=== PATIENT | male | born 1940 | race Hispanic/Latino ===

== ENCOUNTER 2020-12-17 12:13 | Emergency (ER) | payer OTHER ==
--- NOTE | 2020-12-17 14:07 | RAD ---
PORTABLE CHEST 1 VIEW: DATE: 11/26/2020. TIME: 1:30 PM. HISTORY: Dyspnea. COMPARISON: 06/25/2020. FINDINGS/IMPRESSION: There is a moderate-sized right pleural effusion with adjacent atelectatic change. The heart size is normal. No pneumothoraces are seen. Deformity of the right proximal humerus is again seen. There are degenerative changes in the acromioclavicular joints bilaterally. POS: ANGELITOA
[2020-12-17 14:57] LABS: #Eosinphils 0.2 thou/uL (0.0-0.7); #Lymphocytes 0.9 thou/uL (1.20-3.40); #Monocytes 0.4 thou/uL (0.11-0.59); #Neutrophils 2.8 thou/uL (1.40-6.50); %Eosinophils 5.6 % (0.0-10.0); %Lymphocytes 20.4 % (21.0-51.0); %Monocytes 8.4 % (0.0-10.0); %Neutrophils 64.5 % (42.0-75.0); Hemoglobin 8.6 g/dL (14.0-18.0); Mean Corpuscular HGB CONC 32.4 g/dL (32.0-36.0); Mean Corpuscular Hemoglobin 32.7 pg (27.0-31.0); Mean Platelet Volume 8.4 fL (7.4-10.4); Platelet Count 122 thou/uL (130-400); Red Blood Cell (RBC) Count 2.64 mill/uL (4.70-6.10); White Blood Cell (WBC) Count 4.3 thou/uL (4.8-10.8)
[2020-12-17 15:21] LABS: ALT (SGPT) 34 U/L (8-55); AST (SGOT) 48 U/L (5-34); Albumin 2.9 g/dL (3.4-4.8); Alkaline Phosphatase 606 U/L (40-110); Anion Gap 16 mmol/L (10-20); BUN (Urea Nitrogen) 79 mg/dL (8.4-25.7); Bilirubin, Total 0.6 mg/dL (0.2-1.2); CK (CPK) 154 U/L (30-200); Calc. Creatinine Clearance 0 mL/min (70-130); Calcium 8.1 mg/dL (7.8-10.44); Carbon Dioxide 21 mmol/L (23-31); Chloride 109 mmol/L (98-107); Glucose 208 mg/dL (83-110); Lipase 40 U/L (8-78); Potassium 5.9 mmol/L (3.5-5.1); Protein, Total 6.9 g/dL (5.8-8.1); Sodium 140 mmol/L (136-145)
== END 2020-12-17 15:47 | disposition home or self-care (01) ==
LOC: ERS 12:13
DX: R18.8 Other ascites (principal); R06.00 Dyspnea, unspecified; E11.22 Type 2 diabetes mellitus with diabetic chronic kidney disease; N18.6 End stage renal disease; Z79.82 Long term (current) use of aspirin; Z79.899 Other long term (current) drug therapy
CPT/HCPCS: 36415; 49082; 71045; 80053; 82550; 83690; 83880; 84484; 85025; 93005